=== PATIENT | male | born 1965 | race American Indian/Alaskan Native ===

== ENCOUNTER 2016-06-14 12:18 | Emergency (ER) | payer OTHER ==
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
[2016-06-14 22:52] VITALS: BP 125/75
--- NOTE | 2016-06-15 07:47 | XRay Report ---
Lumbar spine: Pain following fall. There either free vertebrae involving at least L2-L5 with spotty involvement of T12 and L1. Vertebral height, alignment, and interspaces are preserved. These findings were not present on prior study in September 2008. Impressions: The findings are highly suspicious for metastatic prostate disease. No acute finding suspected. AP pelvis: Multiple areas of sclerotic appearing density are scattered throughout the pelvic bones and proximal femora. The soft tissues are unremarkable. Impressions: Pain following fall. Findings consistent with metastatic disease most likely from the prostate gland. No acute finding.
== END 2016-06-14 23:03 | disposition home or self-care (01) ==
LOC: ED 12:18
DX: M54.5 Low back pain (principal); R10.2 Pelvic and perineal pain; M79.652 Pain in left thigh; R55 Syncope and collapse; C61 Malignant neoplasm of prostate; Z90.49 Acquired absence of other specified parts of digestive tract; V49.9XXA Car occupant (driver) (passenger) injured in unspecified traffic accident, initial encounter; W22.10XA Striking against or struck by unspecified automobile airbag, initial encounter; Y93.89 Activity, other specified; Y99.8 Other external cause status; Y92.488 Other paved roadways as the place of occurrence of the external cause
CPT/HCPCS: 70450; 72100; 72170

== ENCOUNTER 2017-08-30 15:37 | Outpatient (CLI) | payer MEDICARE | END 2017-08-30 15:38 | disposition home or self-care (01) | LOC: LABHHL 15:37 | PROVIDERS: ATTEND Internal Medicine Hematology & Oncology | DX: E11.00 Type 2 diabetes mellitus with hyperosmolarity without nonketotic hyperglycemic-hyperosmolar coma (NKHHC) (principal); D50.9 Iron deficiency anemia, unspecified; C61 Malignant neoplasm of prostate; C79.51 Secondary malignant neoplasm of bone; E55.9 Vitamin D deficiency, unspecified; E56.9 Vitamin deficiency, unspecified; R10.30 Lower abdominal pain, unspecified; G89.3 Neoplasm related pain (acute) (chronic); E66.9 Obesity, unspecified; R68.82 Decreased libido; K63.9 Disease of intestine, unspecified; M54.5 Low back pain; N62 Hypertrophy of breast; Z90.49 Acquired absence of other specified parts of digestive tract | CPT/HCPCS: 88341; 88342 ==